=== PATIENT | female | born 1985 | race Caucasian/White ===

== ENCOUNTER 2016-07-27 10:08 | Day surgery (SDC) | payer OTHER ==
[~2016-07-27] VITALS: Ht 174 cm; Wt 66.2 kg
[~2016-07-27 10:08] MED LIST: BUSPAR10 MG PO; CYCLOBENZAPRINE10 MG PO; CYMBALTA60 MG PO; HYDROCODON-ACE1 EAC7 PO; HYDROXYZINE HCL10 MG PO; IRON325 MG PO; LIBRIUM25 MG PO; LORTAB 5-325 M1 EACH PO; LYRICA50 MG PO; MEDROXYPRO150 MG/1 M IM; MELATONIN5 M1 PO; MORPHINE SULFAT15 M1 PO; MOTRIN800 MG PO; NEURONTIN300 MG PO; NORCO 10/3251 TABLET PO; PRAZOSIN HCL2 MG PO; THIAMINE HCL100 MG PO; VICODIN HP 10-1 EACH PO; VYVANSE20 MG PO; VYVANSE30 MG PO; ZANAFLEX2 M1 PO
[2016-07-27 11:05] VITALS: BP 129/75
[2016-07-27 16:35] VITALS: BP 122/74
== END 2016-07-27 17:05 | disposition home or self-care (01) ==
LOC: SDC 10:08
DX: M51.26 Other intervertebral disc displacement, lumbar region (principal); M54.17 Radiculopathy, lumbosacral region; M48.06 Spinal stenosis, lumbar region
CPT/HCPCS: J0330; J0690; J1100; J1170; J2250; J2405; J3010; S0020